=== PATIENT | male | born 1935 | race Caucasian/White ===

== ENCOUNTER 2018-10-14 11:32 | Day surgery (SDC) | payer OTHER, SELFPAY ==
[2018-10-14] VITALS (8 sets, daily range): BP systolic 92–119; BP diastolic 58–86; PULSE 85–111; RESP 12–22; TEMP 36.2–37; O2SAT 93–98
--- NOTE | 2018-10-14 | PATH_ITS ---
[facility] Accession Number: [id number] . 01 Material submitted: . PART A: DUODENUM PART B: ANTRUM PART C: GE JUNCTION . 02 Diagnosis: A. Duodenum, Biopsy: Duodenal mucosa with no diagnostic abnormality. Negative for active inflammation, features of sprue, dysplasia, or malignancy. . B. Stomach, Antrum, Biopsy: Antral mucosa with no diagnostic abnormality. Negative for Helicobacter organisms by immunohistochemistry. Negative for intestinal metaplasia. Negative for dysplasia and malignancy. . C. 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 Negative for Her2 overexpression (Score 0) by immunohistochemistry. Separate fragments of columnar mucosa with no diagnostic abnormality. . . BFI/10/17/2018 . 02 Comment: Two fragments of squamous mucosa show undermining highly atypical glands with abortive glandular architecture, a few ecmr-bn-sato glands, occasional intraluminal neutrophils, and nuclear atypia. The degree of cytologic and architectural atypia is consistent with at least an intramucosal adenocarcinoma. There is no background lesion (i.e., low grade or high grade dysplasia or Hendricks's esophagus) in these biopsies. Further evaluation is recommended to determine if this is originating from adjacent mucosa or stomach as well as additional imaging or endoscopic ultrasound to characterize the lesion, if clinically indicated. . As part of routine director of quality control, Dr. Castillo also reviewed this case and agrees with the diagnosis. Dr. Sherwood discussed the findings with Dr. Benitez on 10/16/18. . 02 Electronically signed: . Judi Sherwood MD, Pathologist NPI- [id number] . 01 Gross description: . Part A: DUODENUM: Received in formalin are 2 fragment(s) of mendes, soft tissue measuring 0.4 x 0.3 x 0.3 cm to 0.3 x 0.3 x 0.3 cm submitted entirely in 1 cassette(s) Part B: ANTRUM: Received in formalin are 2 fragment(s) of mendes, soft tissue measuring 0.3 x 0.3 x 0.3 cm to 0.3 x 0.3 x 0.2 cm submitted entirely in 1 cassette(s) Part C: GE JUNCTION: Received in formalin are multiple fragment(s) of mendes, soft tissue measuring 0.7 x 0.3 x 0.2 cm in aggregate submitted entirely in 1 cassette(s) /CKI /CKI . 02 Microscopic: . B. An immunohistochemical stain was performed to evaluate for Helicobacter organisms and is negative. The control stain showed appropriate reactivity. . C. HER2 immunohistochemistry was performed to characterize the cells of interest. The control stain showed appropriate reactivity. . RESULT: HER2 (4B5): Negative (Score 0). . COMMENT: Testing performed on block C1. The criteria used is based on the [employer] Trial 6 for Scoring HER2 Expression by Immunohistochemistry (IHC) in Gastric and Esophagogastric Junction Adenocarcinoma. . * This test was developed and its performance characteristics determined by [facility]. It has not been cleared or approved by the U.S. Food and Drug Administration. The FDA has determined that such clearance or approval is not necessary. This test is used for clinical purposes. It should not be regarded as investigational or for research. . 02 Pathologist provided ICD-10: K20.9, R63.4 . 02 CPT . 580672, 282515, 355140, U80133 Performed at: 01 [facility] [address] [place] [address], [place], [place] [id number] MD Lukasz Stoddard MD Phone: [phone] Performed at: 02 [facility] [address] [place], [place] [id number] MD Judi Sherwood MD Phone: [phone]
[2018-10-14] MEDS: SODIUM CHLORIDE 0.9% 1,000 ML 200 ML IV (12:00)
--- NOTE | 2018-10-14 12:32 | PM.PREOP ---
Pre-operative Note Interval Note History & Physical reviewed/Exam performed by Physician: Yes Changes to H&P: No
[2018-10-14] MEDS: LIDOCAINE 4% SOLN 50 ML 20 ML TOP (12:39)
[2018-10-14] MEDS: TETRACAINE/BENZOCAINE/BUTAMBEN (CETACAINE) BOTTLE 1 SPRAY TOP (12:40)
[2018-10-14] MEDS: MIDAZOLAM 5 MG/5 ML VIAL IV (12:53)
[2018-10-14] MEDS: fentaNYL 250 MCG/5 ML INJ IV (12:53)
--- NOTE | 2018-10-14 12:56 | PM.OP.1 ---
Operative Date/Time/Diagnoses Date of procedure: 10/14/18 Time of procedure: 12:57 Pre-op diagnosis: Failure to thrive Abdominal and chest pain Post-op diagnosis: same Procedure & Clinicians Procedure: Esophagogastroduodenoscopy with biopsies Same procedure as scheduled: Yes Indications: Unexplained weight loss Surgeon: Rika Benitze Anesthesia Type: Sedation (Versed 3 mg; fentanyl 50 mcg) Operative Notes Findings: 1. Mild duodenitis with a nodular appearance of the tissue and several superficial ulcerations identified. No cassidy ulceration. 2. Mild gastritis again with a nodular appearance of the tissue. Inflamed appearing tissue in the pyloric channel. No cassidy ulceration. 3. GE junction at 44 cm from the incisors without any evidence of hiatal hernia 4. Distal esophageal ulceration at 44 cm from the incisors. The ulcer itself is covered with fibrinous exudate and there is no evidence of recurrent hemorrhage. 5. Tissue at the distal esophagus and GE junction consistent, visually, with Hendricks's changes Closure Type: not applicable Specimen(s): other (Cold forceps mucosal biopsies of colon 1. Duodenum, 2. Antrum, 3. GE junction) Estimated Blood Loss (mL): 2 Procedure in detail: After obtaining informed consent, the patient was brought to the GI suite and placed in the left lateral decubitus position on the examination table. After placement of appropriate monitors, the patient was given incremental doses of Versed and Fentanyl until an appropriate level of sedation was achieved. A time out was held per SCOAP protocol. A bite block was gently placed between the patient's teeth. The endoscope was lubricated and then passed into the patient's posterior oropharynx. The esophagus was cannulated under direct vision and the scope was passed to the second portion of the duodenum without difficulty. The scope was then withdrawn with careful examination of all areas of the upper GI tract and mucosa. In the stomach, the instrument was retroflexed and the GE junction examined. The scope was straightened and the procedure continued with examination of the remainder of the upper GI tract. Findings are noted above. Air was aspirated from the stomach and the endoscope gently removed from the esophagus. The patient was allowed to awaken from sedation without difficulty and taken to the post-anesthesia care unit in good condition. Total sedation time was 14 min Complications: none Condition: stable Disposition: PACU Plan for aftercare: 1. Discharge to home 2. We will contact you with pathology results and any additional recommendations.
== END 2018-10-14 13:55 | disposition home or self-care (01) ==
PROVIDERS: PCP Family Medicine; Visit Provider Surgery
PROC: 0DJ08ZZ Inspection of Upper Intestinal Tract, Via Natural or Artificial Opening Endoscopic (ICD-10-PCS; CPT 43235; principal; 2018-10-14 12:30)
DX: K20.9 Esophagitis, unspecified (principal); K29.70 Gastritis, unspecified, without bleeding; K21.9 Gastro-esophageal reflux disease without esophagitis; R62.7 Adult failure to thrive; K29.80 Duodenitis without bleeding; K22.10 Ulcer of esophagus without bleeding
CPT/HCPCS: 43239; 99152; J2250; J3010

== ENCOUNTER → 2018-11-27 10:31 | Outpatient (CLI) | payer OTHER, SELFPAY ==
--- NOTE | 2018-11-27 10:36 | DI.CT.S_ITS ---
PROCEDURE: CT CHEST ABD PEL W CON INDICATIONS: Esopghageal dysplasia TECHNIQUE: After the administration of oral and intravenous contrast, 5 mm thick sections acquired from the lung apices to the symphysis. 5 mm coronal and sagittal reformats were performed, with additional 7 mm coronal MIP reformats through the lungs. For radiation dose reduction, the following was used: automated exposure control, adjustment of mA and/or kV according to patient size. COMPARISON: [facility], CT, CT ANGIO CHEST PE, 12/19/2017, 20:14. [facility], CT, THORAX WITH CONTRAST, 11/12/2014, 11:40. [facility], CT, CHEST/ABD/PEL WITH CONTRAST, 07/11/2015, 11:31. FINDINGS: Image quality: Excellent. CHEST: Lungs and pleura: There is severe emphysema. There are bibasilar scars/atelectasis. No acute airspace opacities. No pleural effusions or pneumothorax. Central and peripheral airways appear patent and normal in caliber. Mediastinum: Heart size is normal. There is small pericardial effusion. Mildly enlarged posterior mediastinal lymph node measures up to 1.2 cm. Thoracic aorta and central pulmonary arteries are normal in size. Esophagus is thickened concentrically involving the distal esophagus and the gastroesophageal junction. There is an air/fluid level in mid esophagus, presumably secondary to gastroesophageal reflux. No hiatal hernia. Chest wall: No axillary or supraclavicular adenopathy by size criteria. Thyroid gland is normal. ABDOMEN: Solid organs: Liver is normal in size and enhancement. Gallbladder is normal. Biliary system is non dilated. Pancreas enhances normally. Spleen is normal in size and enhancement. No adrenal nodules. Kidneys demonstrate normal size and enhancement, without hydronephrosis. Calcifications in renal yi bilaterally are most likely vascular in nature. Peritoneum and bowel: Bowel loops demonstrate normal wall thickness and caliber. There are a few colonic diverticula. No free fluid or air. Nodes and vessels: No retroperitoneal or mesenteric adenopathy by size criteria. Aorta and inferior vena cava are normal in size. Severe atherosclerosis. Miscellaneous: No ventral hernias. PELVIS: Genitourinary: Bladder is contracted. Enlarged prostate. Miscellaneous: No inguinal hernias or adenopathy. Bones: No suspicious bony lesions. No vertebral body compression fractures. Degenerative changes are noted in lumbar spine. IMPRESSION: 1. Concentric thickening of the distal esophagus and the gastroesophageal junction. Differential diagnosis includes esophagitis, chronic gastroesophageal reflux and esophageal neoplasm. Recommend upper endoscopy for further evaluation. 2. Mildly enlarged posterior mediastinal lymph nodes are present, which may be reactive or secondary to metastatic disease. Recommend clinical correlation and follow up. 3. Severe emphysema. 4. Small pericardial effusion. 5. Diverticulosis without acute diverticulitis. 6. Enlarged prostate. Dictated by: Yimi Rinaldi M.D. on 11/27/2018 at 13:32 Approved by: Yimi Rinaldi M.D. on 11/27/2018 at 17:45
[2018-11-27 11:16] LABS: BUN Creatinine Ratio 18.9 (6-22); Blood Urea Nitrogen 17 mg/dL (9-20); Estimated Glomerular Filt Rate > 60.0 mL/min (>60)
== END ==
LOC: CT 10:35 → LAB 10:44
PROVIDERS: PCP Family Medicine; Visit Provider Surgery
DX: Q39.9 Congenital malformation of esophagus, unspecified (principal)
CPT/HCPCS: 36415; 71260; 74177; 82565; 84520; Q9967